=== PATIENT | female | born 1995 | race Caucasian/White ===

== ENCOUNTER 2022-11-24 19:49 | Emergency (ER) | payer BC ==
[2022-11-24 20:33] LABS: BILIRUBIN,URINE NEGATIVE (NEGATIVE); GLUCOSE, URINE (UA) NEGATIVE (NEGATIVE); KETONES,URINE (UA) TRACE mg/dL (NEGATIVE); LEUKOCYTE ESTERASE, URINE NEGATIVE (NEGATIVE); NITRITE,URINE NEGATIVE (NEGATIVE); OCCULT BLOOD,URINE SMALL (NEGATIVE); PH,URINE 5.5 PH (5.0-7.5); PROTEIN,URINE NEGATIVE (NEGATIVE); UROBILINOGEN,URINE 0.2 (NORMAL) E.U./dL (NORMAL)
[2022-11-24 20:35] LABS: CLARITY,URINE CLEAR (CLEAR); HCG UR QUAL NEGATIVE
[2022-11-24 20:45] LABS: BACTERIA,URINE Few /HPF (None Seen); SQUAMOUS EPITHELIAL CELL,UR FEW Squamous (<= Few); WBC,URINE 0-3 /HPF (0-5)
[2022-11-24] MEDS ORDERED: SODIUM CHLORIDE 0.9% 1,000 ML IV STA (21:02)
[2022-11-24] MEDS ORDERED: ONDANSETRON 4 MG/2 ML VIAL IVP STA (21:02)
[2022-11-24] MEDS ORDERED: KETOROLAC 15 MG/ML VIAL IVP STA (21:02)
[2022-11-24] MEDS ORDERED: CYCLOBENZAPRINE 10 MG TABLET PO STA (21:03)
[2022-11-24] MEDS ORDERED: MECLIZINE 12.5 MG TABLET PO STA (21:03)
--- NOTE | 2022-11-24 21:12 | ED Physician Documentation ---
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 she was stretching and felt a wave of nausea and then lightheadedness and vision went dark for about 10 seconds. she has vomited 6 times and been intermittently dizzy since that time. most recent emesis in the waiting room of ED. patient had been feeling fine prior to this. denies fever, uri symptoms cp soa diarrhea or abdominal pain. no urinary sx. Also of note she has been having L sided neck pain for couple days. Review of Systems Ten Systems: 10 systems reviewed and negative Constitutional: reports: Myalgias, Fatigue, Other (hot and cold flashes) GI: reports: Nausea, Vomiting. 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 : None HEENT: None Psych: None Musculoskeletal: None Derm: None - Past Surgical History Past Surgical History: No - Present Medications Home Medications: Ambulatory Orders Medication Instructions Recorded Confirmed Ondansetron Odt [Zofran Odt] 4 mg TL Q6H PRN #10 tablet 11/24/22 - Allergies Allergies/Adverse Reactions: Allergies Allergy/AdvReac Type Severity Reaction Status Date / Time No Known Drug Allergies Allergy Verified 11/24/22 20:06 - Social History Does the pt smoke?: No Smoking Status: Never smoker Does the pt drink ETOH?: Yes Does the pt have substance abuse?: No - Immunizations Immunizations are current?: Yes - POLST Patient has POLST: No PD ED PE NORMAL - Vitals Vital signs reviewed: Yes - General General: Alert and oriented X 3, No acute distress, Well developed/nourished - HEENT HEENT: Atraumatic, Moist mucous membranes, Pharynx benign - Neck Neck: Supple, no meningeal sign - Cardiac Cardiac: RRR - Respiratory Respiratory: No respiratory distress, Clear bilaterally - Abdomen Abdomen: Non tender, Non distended - Derm Derm: Normal color, Warm and dry - Extremities Extremities: No deformity - Neuro Neuro: No motor deficit, No sensory deficit - Psych Psych: Normal mood, Normal affect Results - Vitals Vitals: Vital Signs - 24 hr 11/24/22 11/24/22 20:00 21:40 Temperature 36.8 C Heart Rate 90 84 Respiratory 17 14 Rate Blood Pressure 127/84 H 108/79 O2 Saturation 99 99 Oxygen O2 Source Room air - Labs Labs: Laboratory Tests 11/24/22 11/24/22 11/24/22 20:18 21:15 21:15 WBC 9.8 RBC 4.14 L Hgb 12.0 Hct 39.5 MCV 95.4 MCH 29.0 MCHC 30.4 L RDW 12.0 Plt Count 209 MPV 9.5 Neut # (Auto) 8.0 H Lymph # (Auto) 1.3 L Mcdonald # (Auto) 0.4 Eos # (Auto) 0.1 Baso # (Auto) 0.0 Absolute Nucleated RBC 0.00 Nucleated RBC % 0.0 Sodium 135 Potassium 3.5 Chloride 101 Carbon Dioxide 25 Anion Gap 9.0 BUN 20 Creatinine 0.7 Estimated GFR (MDRD) 101 Glucose 131 H Calcium 9.2 Total Bilirubin 0.4 AST 18 ALT 18 Alkaline Phosphatase 50 Total Protein 7.2 Albumin 4.2 Globulin 3.0 Albumin/Globulin Ratio 1.4 Lipase 32 Urine Color YELLOW Urine Clarity CLEAR Urine pH 5.5 Ur Specific Hunter >=1.030 H Urine Protein NEGATIVE Urine Glucose (UA) NEGATIVE Urine Ketones TRACE Urine Occult Blood SMALL H Urine Nitrite NEGATIVE Urine Bilirubin NEGATIVE Urine Urobilinogen 0.2 (NORMAL) Ur Leukocyte Esterase NEGATIVE Urine RBC 6-10 H Urine WBC 0-3 Ur Squamous Epith Cells FEW Squamous Urine Bacteria Few Ur Microscopic Review INDICATED Urine Culture Comments NOT INDICATED Urine HCG, Qual NEGATIVE PD Medical Decision Making - ED course ED course: 27yF p/w n/v/dizziness and hot/cold flashes X 2 hours. will obtain labs, provide symptomatic care, reevaluate. Feeling significantly better status post analgesics, Zofran, IV fluids. Return precautions given. Follow-up with a primary care provider. Departure - Departure Disposition: 01 Home, Self Care Clinical Impression: Vomiting, Chills Condition: Good Instructions: ED Nausea Vomiting Follow-Up: Lorna Tracey ARNP [Provider Admit Priv/Credential] - Prescriptions: Ondansetron Odt [Zofran Odt] 4 mg TL Q6H PRN #10 tablet PRN Reason: Nausea / Vomiting Comments: You are seen in the emergency department for vomiting and lightheaded spell. Your lab work and urine uncovered no emergent cause for your symptoms. Please follow-up with a primary care provider (referral enclosed). Electronic prescription was sent to [facility] [place].
[2022-11-24 21:21] LABS: BASOPHILS % (AUTO) 0.3 %; EOSINOPHILS # (AUTO) 0.1 10^3/uL (0.0-0.7); EOSINOPHILS % (AUTO) 0.5 %; HCT - HEMATOCRIT 39.5 % (37.0-47.0); LYMPHOCYTES # (AUTO) 1.3 10^3/uL (1.5-3.5); LYMPHOCYTES % (AUTO) 13.5 %; MEAN CORPUSCULAR HGB CONC 30.4 g/dL (32.0-36.0); MEAN CORPUSCULAR VOLUME 95.4 fL (81.0-99.0); MEAN PLATELET VOLUME 9.5 fL (7.9-10.8); MONOCYTES # (AUTO) 0.4 10^3/uL (0.0-1.0); MONOCYTES % (AUTO) 3.9 %; NEUTROPHILS % (AUTO) 81.5 %; PLT - PLATELET COUNT 209 10^3/uL (130-450); RED BLOOD COUNT 4.14 10^6/uL (4.20-5.40); WHITE BLOOD COUNT 9.8 x10^3/uL (4.8-10.8)
[2022-11-24 21:52] LABS: ALBUMIN 4.2 g/dL (3.2-5.5); ALBUMIN/GLOBULIN RATIO 1.4 (1.0-2.2); BILIRUBIN,TOTAL 0.4 mg/dL (0.2-1.0); CALCIUM 9.2 mg/dL (8.5-10.3); CREATININE 0.7 mg/dL (0.4-1.0); POTASSIUM 3.5 mmol/L (3.5-5.0); TOTAL PROTEIN 7.2 g/dL (6.7-8.2)
[2022-11-24 23:20] VITALS: BP 114/74
== END 2022-11-24 23:26 | disposition home or self-care (01) ==
LOC: ED 19:49
DX: R11.2 Nausea with vomiting, unspecified (principal); R68.83 Chills (without fever)
CPT/HCPCS: 36415; 80053; 81001; 81025; 83690; 85025; 96361; 96374; 99284; A9270; 81003; 87086

== ENCOUNTER 2022-12-11 13:29 | Emergency (ER) | payer BC ==
--- NOTE | 2022-12-11 14:18 | ED Physician Documentation ---
History of Present Illness - Stated complaint Stated Complaint: MIGRAINE, X 5 DAYS, NECK PX - Chief complaint Chief Complaint: Neuro - Additonal information Additional information: Patient is 27-year-old female presenting to the emergency department with headache x5 days. Reports history of migraine headache disorder. States headache is severe and has been getting gradually worse since time of onset. Is associated with neck stiffness. No independent historians or limitations to history of previous ED visit October 2022 reviewed. 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 : None HEENT: None Psych: None Musculoskeletal: None Derm: None - Past Surgical History Past Surgical History: No - Present Medications Home Medications: Ambulatory Orders Medication Instructions Recorded Confirmed Ondansetron Odt [Zofran Odt] 4 mg TL Q6H PRN #10 tablet 11/24/22 Butalbital/Acetaminophen 1 each PO Q8HR #30 tablet 12/11/22 [Butalbital-Acetaminophn 50-300] - Allergies Allergies/Adverse Reactions: Allergies Allergy/AdvReac Type Severity Reaction Status Date / Time No Known Drug Allergies Allergy Verified 12/11/22 13:41 - Social History Does the pt smoke?: No Smoking Status: Never smoker Does the pt drink ETOH?: Yes Does the pt have substance abuse?: No - Immunizations Immunizations are current?: Yes - POLST Patient has POLST: No PD ED PE NORMAL - General General: Alert and oriented X 3, Other (Patient tearful) - HEENT HEENT: Atraumatic, PERRL, EOMI, Ears normal, Moist mucous membranes, Pharynx benign, Dentition benign - Neck Neck: Supple, no meningeal sign, No bony TTP, No adenopathy, No JVD - Cardiac Cardiac: RRR - Respiratory Respiratory: No respiratory distress - Abdomen Abdomen: Normal bowel sounds - Female Female : Deferred - Rectal Rectal: Deferred - Derm Derm: Normal color - Extremities Extremities: No deformity - Neuro Neuro: Alert and oriented X 3, manager demand 2-12 intact, No motor deficit, Normal speech Results - Vitals Vitals: Vital Signs - 24 hr 12/11/22 12/11/22 13:36 15:30 Temperature 36.8 C Heart Rate 114 H 100 Respiratory 20 18 Rate Blood Pressure 132/99 H 110/80 O2 Saturation 100 100 Oxygen O2 Source Room air PD Medical Decision Making - ED course Complexity details: reviewed old records Reviewed Lab Results: None Social Determinants of Health: Patient does not have a primary care doctor. Drug Therapy Requiring Monitoring for Toxicity: Given IV Compazine. ED course: Patient 27-year-old female presenting to the emergency department with headache in setting of known history of migraine headache disorder. Afebrile, he medically stable on arrival to the emergency department. Nonfocal nonlateralizing neurologic exam without nuchal rigidity. No other red flags appreciated on either history or physical exam. Patient given Compazine, Benadryl, Decadron, Toradol and IV hydration. Monitor carefully and found to be resting comfortably and in no acute distress. Will discharge at this time with prescription for Fioricet. Encourage patient to continue to work towards establishing herself with a primary care doctor or return to the emergency department as needed. Final clinical impression: Migraine headache. Departure - Departure Disposition: 01 Home, Self Care Clinical Impression: Migraine Instructions: ED Headache Migraine Prescriptions: Butalbital/Acetaminophen [Butalbital-Acetaminophn 50-300] 1 each PO Q8HR #30 tablet Comments: Thank you for allowing us to care for you today [facility]. Prescription sent electronically to [facility] in [place]. I will be discharging us a medication you can take for any ongoing headache. Please continue to work towards establishing yourself with a primary care doctor. If it anytime you have new or worsening symptoms please not hesitate to return. Discharge Date/Time: 12/11/22 15:30
[2022-12-11] MEDS ORDERED: KETOROLAC 15 MG/ML VIAL IVP STA (14:24)
[2022-12-11] MEDS ORDERED: SODIUM CHLORIDE 0.9% 1,000 ML IV STA (14:24)
[2022-12-11] MEDS ORDERED: DEXAMETHASONE 10 MG/ML VIAL IVP STA (14:24)
[2022-12-11] MEDS ORDERED: diphenhydrAMINE INJ 50 MG/ML VIAL IVP STA (14:24)
[2022-12-11] MEDS ORDERED: PROCHLORPERAZINE 10 MG/2 ML VIAL IVP STA (14:24)
[2022-12-11 15:30] VITALS: BP 110/80
== END 2022-12-11 15:30 | disposition home or self-care (01) ==
LOC: ED 13:29
DX: G43.909 Migraine, unspecified, not intractable, without status migrainosus (principal)
CPT/HCPCS: 36415; 96361; 96374; 96375; 99284; J1200